=== PATIENT | male | born 1960 ===

== ENCOUNTER 2017-10-27 | Emergency (ER) | payer MEDICARE, MEDICAID ==
[2017-10-27 00:21] VITALS: RESP 20; O2SAT 96
--- NOTE | 2017-10-27 02:48 | C.PDOC ---
History Of Present Illness The patient is a 57 year old male whose PMHx includes back pain. Patient states he was in the shower when he turned and twisted his lower back, causing a shooting pain into his right lower leg. Patient reports a brief tingling sensation and numbness to his right leg. Patient was able to walk out of the bathroom, but states he felt like he was unable to support himself on that leg. Patient denies falls, direct trauma to lower back and legs, weakness, urinary/ bowel incontinence. Time Seen by Provider: 10/27/17 01:13 Chief Complaint (Nursing): Weakness/Neurological Deficit History Per: Patient History/Exam Limitations: no limitations Onset/Duration Of Symptoms: Hrs Current Symptoms Are (Timing): Still Present Activity At Onset Of Symptoms: Standing Fall Associated With With Symptoms: No Additional History Per: Patient Past Medical History Reviewed: Historical Data, Nursing Documentation, Vital Signs Vital Signs: Last Vital Signs Temp 98.2 F 10/27/17 02:48 Pulse 79 10/27/17 02:48 Resp 20 10/27/17 02:48 BP 129/86 10/27/17 02:48 Pulse Ox 96 10/27/17 05:10 - Medical History PMH: Arthritis, Asthma, Back Problems, HTN, Hypercholesterolemia Surgical History: Pacemaker (medtronic) Family History: States: Unknown Family Hx - Social History Hx Alcohol Use: Yes Hx Substance Use: No - Immunization History Hx Tetanus Toxoid Vaccination: No Hx Influenza Vaccination: No Hx Pneumococcal Vaccination: No Review Of Systems Genitourinary: Negative for: Incontinence Musculoskeletal: Positive for: Leg Pain (right ) Neurological: Positive for: Numbness (right leg ) Physical Exam - Physical Exam Appears: Non-toxic, No Acute Distress Skin: Normal Color, Warm, Dry Head: Atraumatic, Normacephalic Eye(s): bilateral: Normal Inspection Oral Mucosa: Moist Neck: Normal ROM, Supple Chest: Symmetrical, No Deformity, No Tenderness Cardiovascular: Rhythm Regular Respiratory: Normal Breath Sounds Back: Paraspinal Tenderness (right-sided ), Straight Leg Raising (+30 degrees ) Extremity: Normal ROM (right leg ), Capillary Refill (less than 2 seconds ) Neurological/Psych: Oriented x3, Normal Speech, Normal Cognition, Normal Motor, Normal Sensation Gait: Steady ED Course And Treatment O2 Sat by Pulse Oximetry: 96 (on RA) Pulse Ox Interpretation: Normal Progress Note: Toradol IM administered. On re-examination, patient is resting comfortably, showing no signs of distress and reports an improvement in his pain. Patient is ambulatory in the ED and is stable for discharge. Patient is advised to f/u with PMD within 1-2 days for further evaluation and/or return to the ED if symptoms persist or worsen. 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 - Scribe Statement The provider has reviewed the documentation as recorded by the Scribe (Constance Ruelas) All medical record entries made by the Scribe were at my direction and personally dictated by me. I have reviewed the chart and agree that the record accurately reflects my personal performance of the history, physical exam, medical decision making, and the department course for this patient. I have also personally directed, reviewed, and agree with the discharge instructions and disposition.
[2017-10-27 03:10] VITALS: BP 129/86; PULSE 79; TEMP 98.2
== END 2017-10-27 03:12 | disposition home or self-care (01) ==
LOC: SUPCPDRO → C.ER
DX: G89.29 Other chronic pain (principal); M54.9 Dorsalgia, unspecified
CPT/HCPCS: 96372; 99283; J1885

== ENCOUNTER 2017-12-30 07:10 | Emergency (ER) | payer MEDICARE, MEDICAID ==
[2017-12-30 07:19] VITALS: TEMP 97.3; O2SAT 96
--- NOTE | 2017-12-30 08:07 | C.PDOC ---
History Of Present Illness 57-year-old male, PMHx includes Diabetes, presents to the emergency department with complaints of rash. Patient states he was working in yard yesterday, after which he developed an itchy and painful rash to bilateral arms. He notes that rash spread to his face after he itched it. He denies any throat or tongue swelling, fever, shortness of breath, nausea/vomiting, chest pain or any other associated symptoms. No other complaints at this time. Time Seen by Provider: 12/30/17 07:22 Chief Complaint (Nursing): Allergic Reaction History Per: Patient History/Exam Limitations: no limitations Past Medical History Reviewed: Historical Data, Nursing Documentation, Vital Signs Vital Signs: Last Vital Signs Temp 97.3 F L 12/30/17 07:15 Pulse 78 12/30/17 07:15 Resp 19 12/30/17 07:15 BP 144/93 H 12/30/17 07:15 Pulse Ox 96 12/30/17 09:11 - Medical History PMH: Arthritis, Asthma, Back Problems, Depression, HTN, Hypercholesterolemia Surgical History: Pacemaker (medtronic) Family History: States: No Known Family Hx - Social History Hx Alcohol Use: Yes Hx Substance Use: No - Immunization History Hx Tetanus Toxoid Vaccination: Yes Hx Influenza Vaccination: Yes Hx Pneumococcal Vaccination: No Review Of Systems Constitutional: Negative for: Fever, Chills ENT: Negative for: Throat Pain, Throat Swelling Respiratory: Negative for: Cough, Shortness of Breath, Hemoptysis Gastrointestinal: Negative for: Nausea, Vomiting Musculoskeletal: Negative for: Back Pain Skin: Positive for: Rash Neurological: Negative for: Weakness, Headache, Dizziness Physical Exam - Physical Exam Appears: Non-toxic, No Acute Distress Skin: Warm, Dry, Rash (bilateral upper extremities with erythematous macular rash consistent with poison leana. No infectious process/) Head: Atraumatic, Normacephalic Eye(s): bilateral: Normal Inspection, PERRL, EOMI Nose: Normal Oral Mucosa: Moist Lips: Normal Appearing Neck: Normal ROM Chest: Symmetrical Cardiovascular: Rhythm Regular, No Murmur Respiratory: Normal Breath Sounds, No Accessory Muscle Use Gastrointestinal/Abdominal: Soft, No Tenderness, No Guarding, No Rebound Extremity: Normal ROM, No Deformity, No Swelling Neurological/Psych: Oriented x3, Normal Speech ED Course And Treatment O2 Sat by Pulse Oximetry: 96 (RA) Pulse Ox Interpretation: Normal Medical Decision Making Medical Decision Makin - patient reevaluated. Symptoms have improved. Will discharge home. Advised patient to decrease scratching. Follow up with pmd within 2 days. Disposition Counseled Patient/Family Regarding: Diagnosis, Need For Followup, Rx Given - Disposition Referrals: Miguel Banerjee MD [Staff Provider] - Disposition: HOME/ ROUTINE Disposition Time: 09:10 Condition: IMPROVED Additional Instructions: follow up with your doctor within 2 days call to make an appointment take medications as prescribed return to ER if symptoms worsens or progress Prescriptions: DiphenhydrAMINE [Benadryl] 50 mg PO QID PRN #20 cap PRN Reason: Rash Loratadine [Claritin] 10 mg PO DAILY PRN #15 tab PRN Reason: Other predniSONE [Prednisone] 10 mg PO DAILY #42 tab Instructions: Poison Leana, Skin Rash (DC) Forms: Gen Discharge Inst [employer], [employer] ([place]) Print Language: MOZAMBICAN - Clinical Impression Clinical Impression: Allergic contact dermatitis - Scribe Statement The provider has reviewed the documentation as recorded by the Scribe (Wilson Rendon) All medical record entries made by the Scribe were at my direction and personally dictated by me. I have reviewed the chart and agree that the record accurately reflects my personal performance of the history, physical exam, medical decision making, and the department course for this patient. I have also personally directed, reviewed, and agree with the discharge instructions and disposition.
[2017-12-30 09:50] VITALS: BP 125/88; PULSE 56; RESP 18
== END 2017-12-30 09:50 | disposition home or self-care (01) ==
LOC: C.ER 07:10
DX: L23.7 Allergic contact dermatitis due to plants, except food (principal)